=== PATIENT | male | born 1960 | race Caucasian/White ===

== ENCOUNTER 2024-02-24 11:24 | Outpatient (OUT) | payer OTHER, SELFPAY ==
--- NOTE | 2024-02-24 11:30 | XR_ITS ---
[facility] [id number] Patient Name: JENNI DEGROOT MRN: [id number] date: 1960 Sex: M Assigned Patient Location: [facility] Current Patient Location: Accession/Order Number: [id number] Exam Date: 02/24/2024 11:45 Report Date: 02/25/2024 06:58 At the request of: MAU JIMENEZ Procedure: XR lumbar spine 6V w bending EXAMINATION: XR lumbar spine 6V w bending HISTORY: Acute Right Sided Low Back Pain, Fall COMPARISON: No relevant comparison available. FINDINGS: BONES: No fracture, spondylolisthesis, bone lesion. No change in alignment during flexion and extension. Moderate degenerative facet arthropathy L3-L4 through L5-S1. DISC SPACES: Marked disc space narrowing with posterior endplate osteophytes L2-L3, L4-L5, L5-S1. Mild narrowing L3-L4. PARASPINOUS: Negative. No paraspinous abnormality is seen. OTHER: Negative. XR/XR lumbar spine 6V w bending IMPRESSION: 1. Marked degenerative changes of lumbar spine. 2. No appreciable acute abnormality. Electronically authenticated by: FATIMAH BOJORQUEZ Date: 02/25/2024 06:58
== END 2024-02-24 11:25 | disposition home or self-care (01) ==
LOC: RAD 11:26
PROVIDERS: PCP Family Medicine; Visit Provider Nurse Practitioner Family
DX: M54.50 Low back pain, unspecified (principal); M51.36 Other intervertebral disc degeneration, lumbar region
CPT/HCPCS: 72114